=== PATIENT | female | born 1935 | race Caucasian/White ===

== ENCOUNTER 2016-07-08 01:39 | Observation (INO) | payer MEDICARE ==
[~2016-07-08] VITALS: Ht 149.9 cm; Wt 86.5 kg
[~2016-07-08 01:39] MED LIST: ACETAMINOPHEN325 MG PO; BAYER CHEWABLE81 MG PO; BETAPACE 80 MG80 MG PO; FRESH KOTE; FUROSEMIDE20 MG PO; GENTEAL; GLUCOPHAGE500 MG PO; LIPITOR10 MG PO; MAGNESIUM OXID250 MG PO; OS-CAL 500+D TA1 TAB PO; PLAVIX75 MG PO; RESTASIS EYE DR30 EA EACH EYE; VITAMIN B COMPL1 TAB PO; VITAMIN D31000 UNIT PO
[2016-07-08 02:28] LABS: BASOPHILS 0.2 % (0.0-2.0); EOSINOPHILS 0.7 % (0-7); HEMATOCRIT 45.3 % (36.0-48.0); HEMOGLOBIN 14.6 g/dL (12-16); IMMATURE GRANULOCYTES 0.2 % (0-5); LYMPHOCYTES 12.7 % (15-50); MCH 28.9 pg (26.0-34.0); MCHC 32.2 g/dL (31.0-37.0); MCV 89.5 fL (80.0-100.0); MEAN PLATELET VOLUME 10.1 fL (7.4-10.4); MONOCYTES 5.7 % (2-11); NEUTROPHILS 80.5 % (40-80); PLATELET COUNT 262 10x3/uL (130-400); RBC 5.06 10x6/uL (4.00-5.40); RDW 17.2 % (11.5-14.5); WBC 10.5 10x3/uL (4.8-10.8)
[2016-07-08 02:39] LABS: ALBUMIN 3.3 g/dL (3.4-5.0); ANION GAP 19.2 mmol/L (8-16); BILIRUBIN - TOTAL 1.09 mg/dL (0.2-1.3); CARBON DIOXIDE 22.6 mmol/L (21.0-32.0); CREATININE - SERUM 1.2 mg/dL (0.6-1.3); POTASSIUM - SERUM 3.8 mmol/L (3.5-5.1); PROTEIN - SERUM 6.8 g/dL (6.4-8.2)
[2016-07-08 02:53] LABS: MAGNESIUM - SERUM 1.3 mg/dL (1.8-2.4)
[2016-07-08 02:54] LABS: TROPONIN-I 0.062 ng/mL (0.000-0.060)
[2016-07-08] MEDS ORDERED: COREG 3.1253.125 MG PO (04:47)
[2016-07-08 04:48] VITALS: BP 156/95; BMI 38.6
[2016-07-08 05:00] VITALS: BP 140/70
[2016-07-08 08:35] VITALS: BP 148/73
[2016-07-08 13:21] VITALS: Ht 149.9 cm; Wt 86.5 kg
[2016-07-08 13:31] VITALS: BP 149/62
[2016-07-08 16:17] VITALS: BP 123/65
--- NOTE | 2016-07-08 19:00 | NUR ---
BEDSIDE REPORT RECEIVED AND CARE OF PT ASSUMED. PT SITTING UP IN CHAIR WATCHING TV. IV IN LEFT HAND SALINE LOCKED. LUNGS CLEAR BUT DIMINISHED IN THE BASES. WILL MONITOR CLOSELY FOR NEEDS.
[2016-07-08 20:00] VITALS: BP 134/56
--- NOTE | 2016-07-08 21:49 | NUR ---
HS MEDICATIONS GIVEN. WILL CONTINUE TO MONITOR FOR NEEDS. PT REMAINS SITTING UP IN RECLINER WITH FEET ELEVATED.
--- NOTE | 2016-07-08 22:00 | NUR ---
HS SNACK GIVEN- TURKEY SANDWICH AND CRANBERRY JUICE. WILL CONTINUE TO MONITOR FOR NEEDS.
[2016-07-09] VITALS: BP 116/48
[2016-07-09 04:00] VITALS: BP 136/68
[2016-07-09 08:13] VITALS: BP 127/52
[2016-07-09 12:26] VITALS: BP 130/74
--- NOTE | 2016-07-09 14:30 | NUR ---
UP IN CHAIR,REMAINS WITHOUT DISTRESS.CALL LIGHT IN REACH
--- NOTE | 2016-07-09 15:40 | NUR ---
Patient Name: JON ANDERSON Admission Status: ER Accout number: [id number] Admission Date: 07-08-2016 : 1935 Admission Diagnosis: Attending: IRVIN Current LOS: 1 Anticipated DC Date: 07-09-2016 Planned Disposition: Home Primary Insurance: [employer] CHOICE PPO MCR ADVANT Discharge Planning Comments: CM MET WITH PATIENT WITH D/C NEEDS AND PLANS. PATIENT STATED SHE LIVES AT [facility] AND HER FRIEND (NEO) WILL DRIVE HER THERE AT DISCHARGE. PATIENT STATED THERE IS AN ELEVATOR IN THE FACILITY. PATIENTS STATED SHE IS INDEPENDENT WITH HER CARE AND HAS A WALKER, WHEELCHAIR, AND GLUCOMETER (DOES NOT USE-A1C 6.2). PATIENTS PCP IS DR. LÓPEZ AND SHE USES [facility]. PATIENT REFUSED HOME HEALTH AND ANY OTHER NEEDS FOR DISCHARGE. PATIENT IS DISCHARGING TODAY. PCP DR. LÓPEZ [facility]- [phone] MIMI (SON) [phone] Front End Loader Driver: Tonja Delaney Is the patient Alert and Oriented? Yes 0 * How many steps to enter\exit or inside your home? ELEVATOR 0 * PCP DR. LÓPEZ 0 * Pharmacy [facility] 0 * Preadmission Environment Home with Family 0 * ADLs Independent 0 * Equipment Glucometer Walker Wheelchair 0 * List name and contact numbers for known caregivers / representatives who currently or will assist patient after discharge: MIMI PeñaSON) [phone] 0 * Community resources currently utilized None 0 * Additional services required to return to the preadmission environment? Yes 0 * Can the patient safely return to the preadmission environment? Yes 0 * Has this patient been hospitalized within the prior 30 days at any hospital? No 0 Grand Total: 0
[2016-07-09 16:02] VITALS: BP 122/67
--- NOTE | 2016-07-09 17:23 | NUR ---
DISCHARGE INSTRUCTIONS,STATES UNDERSTANDING.IV DCD CATH INTACT.CALL FOR RIDE HOME.
--- NOTE | 2016-07-09 17:35 | NUR ---
LEFT FLOOR VIA WHEELCHAIR FOR TRANSPORT HOME
--- NOTE | 2016-07-13 10:32 | DS ---
PATIENT:JON CHAMORRO :[birth year] MEDICAL RECORD: [id number] DISCHARGE SUMMARY ADMISSION DATE: 07/08/16 DISCHARGE DATE: 07/09/16 DISCHARGE DIAGNOSES: 1. Pulmonary edema. 2. Aortic stenosis. 3. Coronary artery disease. 4. Cardiomyopathy. 5. Congestive heart failure, chronic systolic dysfunction. 6. Hypertension. 7. Diabetes. HOSPITAL COURSE: Mrs. Chamorro presents with heart failure symptomatology, found to have pulmonary edema. She underwent diuresis with IV Lasix, breathing returned to baseline. She was discharged home with no change in her oral medications as she is already on Lasix at home. Will follow up with [facility] in 2-3 weeks. TRANSINT:[id number] Voice Confirmation ID: [id number] DOCUMENT ID: [id number] TERI HENRIQUEZ MD at 1032 CC: [id number] DICTATION DATE: 07/09/16 1320 STONE CUTTER: 07/10/16 0326 DIS IN 07/09/16 [facility] [address] [id number]
--- NOTE | 2016-07-13 10:32 | EC ---
PATIENT:JON ANDERSON DATE OF SERVICE: 07/08/16 SEX: F MEDICAL RECORD: [id number] DATE OF : [birth year] LOCATION:D.[facility] [place] AGE OF PATIENT: 81 ADMISSION DATE: 07/08/16 REFERRING PHYSICIAN: INTERPRETING PHYSICIAN: TERI ARCHIBALD MD ECHOCARDIOGRAM REPORT ECHO CHARGES 4 ECHO COMPLETE CLINICAL DIAGNOSIS: CHF ECHOCARDIOGRAPHIC MEASUREMENTS (adult normal given) AC root (d.<3.7cm) 2.5 LV Septum d (<1.2 cm> 1.4 Valve Excursion 0.6 LV Septum (systole) 1.5 Left Atria (s.<4.0cm> 3.5 LVPW d(<1.2cm) 1.5 RV (d.<2.3cm) 2.6 LVPW (sytole) 2.1 LV diastole(<5.6CM) 4.8 MV E-F(>70mm/sec) LV systole 3.9 LVOT Diameter 1.5 MV exc.(>10mm) Est.ejection fraction (50-75%) Pericardial Effusion N DOPPLER: LVIT A 88.0 E 101 LA RVSP 53.0 LVOT 53.0 AOP1/2T Asc. Ao 397 RVOT 90.0 RA PA 82.0 AV Gradient Peak 63.2 AV Mean 41.0 AV Area 0.3 MV Gradient Peak 4.5 MV Mean 1.5 MV Area COMMENTS: Barrel Bridge Assembler: Zaire LIOE Apartment Maintenance Manager:1 Dr. Archibald TAPE# PACS DATE OF SERVICE: 07/09/2016 Echocardiogram FINDINGS: 1. Left ventricular chamber size is dilated. Left ventricular systolic function is markedly reduced. Overall ejection fraction is 20%. 2. Left atrium is within normal limits at 3.5 cm. Right atrium and right ventricular chamber sizes are moderately dilated. 3. Valvular structures: Aortic valve demonstrates severe calcific aortic ECHOCARDIOGRAM REPORT [id number] JON ANDERSON stenosis, valve area calculates to less than 0.5 cm-squared and there is gradient of 63 mm across the valve. The remaining valvular structures have normal structure and motion. 4. Doppler interrogation elsewise reveals moderate mitral regurgitation, moderate tricuspid regurgitation, no other valvular insufficiency or stenosis and pulmonary systolic pressure is elevated estimated at 53 mmHg. 5. No evidence of pericardial effusion or left ventricular thrombus. TRANSINT:[id number] Voice Confirmation ID: [id number] DOCUMENT ID: [id number] TEIR ARCHIBALD MD at 1032 CC: [id number] DICTATION DATE: 07/09/16 1400 ALTERATION TAILOR APPRENTICE: 07/09/16 1520 DIS IN 07/09/16 [address] [place] [address]
== END 2016-07-09 17:35 | disposition home or self-care (01) ==
LOC: D.ER 01:39 → OBSVTIME 03:21 → D.MS 03:21
PROVIDERS: Emergency Medicine; ADMIT Internal Medicine Interventional Cardiology
DX: J81.1 Chronic pulmonary edema (principal); I25.10 Atherosclerotic heart disease of native coronary artery without angina pectoris; I35.0 Nonrheumatic aortic (valve) stenosis; I11.0 Hypertensive heart disease with heart failure; I50.23 Acute on chronic systolic (congestive) heart failure; E11.9 Type 2 diabetes mellitus without complications

== ENCOUNTER 2016-08-26 20:54 | Emergency (ER) | payer MEDICARE ==
[2016-07-08 13:21] VITALS: BMI 38.5
[~2016-08-26 20:54] MED LIST changes: +COREG 3.1253.125 MG PO
[2016-08-26 22:00] LABS: BASOPHILS 0.1 % (0.0-2.0); EOSINOPHILS 0.8 % (0-7); HEMATOCRIT 48.4 % (36.0-48.0); HEMOGLOBIN 15.5 g/dL (12-16); IMMATURE GRANULOCYTES 0.1 % (0-5); LYMPHOCYTES 21.9 % (15-50); MCH 29.2 pg (26.0-34.0); MCV 91.3 fL (80.0-100.0); MONOCYTES 9.4 % (2-11); NEUTROPHILS 67.7 % (40-80); PLATELET COUNT 255 10x3/uL (130-400); RDW 17.2 % (11.5-14.5); WBC 8.3 10x3/uL (4.8-10.8)
[2016-08-26 22:08] LABS: APTT 28.1 SECONDS (22.8-39.4); INR 1.15 (0.85-1.17); PROTIME 14.6 SECONDS (11.6-15.0)
[2016-08-26 22:14] LABS: ALBUMIN 3.1 g/dL (3.4-5.0); BILIRUBIN - TOTAL 0.91 mg/dL (0.2-1.3); CARBON DIOXIDE 24.3 mmol/L (21.0-32.0); CREATININE - SERUM 1.2 mg/dL (0.6-1.3); POTASSIUM - SERUM 4.3 mmol/L (3.5-5.1); PROTEIN - SERUM 6.6 g/dL (6.4-8.2)
== END 2016-08-26 23:00 | disposition home or self-care (01) ==
LOC: D.ER 20:54
PROVIDERS: Family Medicine
DX: R04.0 Epistaxis (principal); I48.2 Chronic atrial fibrillation; Z79.01 Long term (current) use of anticoagulants; I11.0 Hypertensive heart disease with heart failure; I50.9 Heart failure, unspecified; E11.9 Type 2 diabetes mellitus without complications

== ENCOUNTER 2016-08-27 13:55 | Emergency (ER) | payer MEDICARE ==
[2016-07-08 13:21] VITALS: BMI 38.5
== END 2016-08-27 16:45 | disposition home or self-care (01) ==
LOC: D.ER 13:55
DX: R04.0 Epistaxis (principal); I50.9 Heart failure, unspecified; I48.2 Chronic atrial fibrillation; E11.9 Type 2 diabetes mellitus without complications; I10 Essential (primary) hypertension; E83.42 Hypomagnesemia

== ENCOUNTER 2016-10-14 10:57 | Inpatient (IN) | payer MEDICARE ==
[~2016-10-14] VITALS: Ht 149.9 cm; Wt 81.4 kg
--- NOTE | ~2016-10-14 | CN ---
PATIENT NAME:JON ANDERSON MEDICAL RECORD: [id number] : 39 LOCATION:D.M2 D.2114 ADMIT DATE: 10/14/16 ACCOUNT: [id number] CONSULTING PHYSICIAN: ISMAEL ROSAS MD REFERRING PHYSICIAN: GESRON ARCHIBALD MD DATE OF CONSULTATION: 10/14/2016 CONSULT REQUESTING PHYSICIAN: Dr. Gerson Archibald. REASON FOR CONSULTATION: Pulmonary edema, possible pleural effusion. HISTORY OF PRESENT ILLNESS: Ms. Anderson is a 81-year-old female who has a history of chronic systolic dysfunction with EF of 10% to 15%, also she has aortic stenosis. The patient was seen in Dr. Archibald's office today and felt that she has pulmonary edema as well as pleural effusion. The patient denies any fever or chill, no night sweats. REVIEW OF SYSTEMS: As in history of present illness. PAST MEDICAL HISTORY: 1. Coronary artery disease. 2. Atrial fibrillation. 3. Congestive heart failure. 4. Chronic systolic dysfunction with EF less than 20%. 5. Aortic valve stenosis. 6. History of pulmonary edema in the past. 7. Hyperlipidemia. PAST SURGICAL HISTORY: She has a cardiac catheterization with stent placement. ALLERGIES: SHE IS ALLERGIC TO OXYCODONE AND PERCODAN. MEDICATIONS: On Stabilitech is reviewed. PERSONAL AND SOCIAL HISTORY: The patient is a nonsmoker, nondrinker. FAMILY HISTORY: Noncontributory. PHYSICAL EXAMINATION: GENERAL: Now, the patient is lying comfortably. She is not in acute distress. She is wearing nasal cannula oxygen. VITAL SIGNS: The blood pressure is 147/83, pulse is 72, respirations 16, temperature 97.5, pulse ox is 97% on room air. HEENT: Conjunctivae are pink. Sclerae nonicteric. NECK: Supple. There is elevated JVD. CHEST: There are bilateral crackles. No wheezing. HEART: Rate and rhythm is regular with a grade II/ systolic murmur. ABDOMEN: Soft. Bowel sounds present. No hepatosplenomegaly. RECTAL: Deferred. EXTREMITIES: No cyanosis, no clubbing. There is 3+ pedal edema. SKIN: Warm, normal turgor. CENTRAL NERVOUS SYSTEM: The patient is awake and alert. There are no obvious cranial nerve abnormalities. CHEST RADIOGRAPH: There are bilateral interstitial infiltrate. There is CONSULT REPORT [id number] JON ANDERSON perihilar infiltrate. There is possible left-sided pleural effusion. IMPRESSION: 1. Pulmonary edema. 2. Left pleural effusion secondary to congestive heart failure. 3. Congestive heart failure consistent with chronic systolic dysfunction with EF less than 20%. 4. Possible pneumonia consistent with community-acquired pneumonia. 5. Aortic stenosis. 6. Pulmonary hypertension secondary to aortic stenosis and left heart failure. 7. Coronary artery disease. 8. Atrial fibrillation. RECOMMENDATION: 1. Start her on Lasix, potassium and check the CT scan of the chest. 2. Follow up labs and chest radiograph in the morning. Check CBC and chemistry and proBNP. Dr. Archibald, thank you for involving me in the care of Ms. Anderson. TRANSINT:[id number] Voice Confirmation ID: [id number] DOCUMENT ID: [id number] ISMAEL ROSAS MD CC: GERSON ARCHIBALD MD [id number] DICTATION DATE: 10/14/16 1417 WAITER/WAITRESS: 10/14/16 9009 ADM IN [facility] [address] [place] [address]
--- NOTE | 2016-10-14 11:32 | NUR ---
RECIVED TO ROOM [address] FELIPE OFFICE. RN FOR ADMIT ASSESSMENT
--- NOTE | 2016-10-14 11:54 | NUR ---
NEW ADMIT FROM DR. FELIPE OFFICE. UP IN CHAIR WITH CALL LIGHT IN REACH. WILL CONT. PLAN OF CARE.
[2016-10-14] MEDS ORDERED: GENTEAL LUBRICA15 ML EACH EYE (12:06)
[2016-10-14 12:26] VITALS: BP 147/83
[2016-10-14 12:38] VITALS: BP 147/83; BMI 37.6
--- NOTE | 2016-10-14 13:29 | HP ---
PATIENT: JON CHAMORRO MEDICAL RECORD: [id number] ACCOUNT: [id number] LOCATION:D. D.2114 : [birth year] ADMISSION DATE: 10/14/16 HISTORY AND PHYSICAL EXAMINATION DATE OF ADMISSION: 10/14/2016 DIAGNOSES: 1. Shortness of breath, dyspnea on exertion. 2. Pleural effusion. 3. Aortic stenosis. 4. Cardiomyopathy, chronic systolic dysfunction. 5. Congestive heart failure, chronic systolic dysfunction. 6. Coronary artery disease. 7. Atrial fibrillation. 8. Hyperlipidemia. HISTORY OF PRESENT ILLNESS: Mrs. Chamorro presents with increasing shortness of breath. Echocardiogram reveals critical aortic stenosis, valve area of 0.3 cm-squared, and ejection fraction 10%-15%. She had a very large pleural effusion. She has had a history of pleural effusions from the congestive heart failure in the past requiring thoracentesis and has felt better after this. She has been going downhill for over 2 months now from a respiratory standpoint. PHYSICAL EXAMINATION: GENERAL APPEARANCE: Well-nourished, well-developed, appears stated age. Level of distress, comfortable. PSYCHIATRIC: Mental status, alert, normal affect. Orientation, oriented to time, place and person. EYES: Lids and conjunctiva, noninjected. No discharge, no pallor. ENT: Lips, teeth, gums, normal dentition. Oropharynx, no cyanosis, no pallor. NECK: Carotid arteries, bilateral normal upstroke, no bruits, no thrills. JUGULAR VEINS: No jugular venous pressure or distention. CERVICAL LYMPH NODES: Nontender, nonenlarged. THYROID: Not enlarged. Nontender. No nodules. LUNGS: Respiratory effort, unlabored. CHEST: Normal curvature. No thoracic deformity. No chest wall tenderness. Percussion, resonant. Auscultation, clear. No wheezes, no rales, no rhonchi. CARDIOVASCULAR: Precordial exam, nondisplaced. No heaves or pericardial thrills. Rate and rhythm, regular. Heart sounds, normal S1, normal S2. No S3, no gallop, no rub. Systolic murmur, not heard. Diastolic murmur, not heard. EXTREMITIES: No cyanosis, no edema. Peripheral pulses, full and equal in all extremities, except as noted. No bruits appreciated. ABDOMEN: Soft, nondistended. Normal aorta. No bruit. Nontender. No masses. Liver, nontender, no hepatomegaly. Spleen, nontender, no splenomegaly. MUSCULOSKELETAL: No joint tenderness. No joint swelling. No erythema. NEUROLOGICAL: Normal gait, normal strength, normal tone. SKIN: Warm and dry. REVIEW OF SYSTEMS: The patient reports easy bruising but reports no swollen glands. The patient reports no fever, no night sweats, no significant weight gain, no significant weight loss. No significant exercise tolerance. The patient reports no dry eyes, no irritation, no vision change. Patient reports no difficulty hearing and no ear pain. Patient reports no frequent nose bleeds or nose and sinus problems. Patient reports on arm pain on exertion. No HISTORY AND PHYSICAL [id number] JON CHAMORRO shortness of breath while lying down. No history of heart murmur. Patient reports no cough, no wheezing or coughing up blood. Patient reports no abdominal pain, no vomiting. Normal appetite. No diarrhea and not vomiting blood. No nausea and no constipation. Patient reports no incontinence. No difficulty urinating. No hematuria. No increased frequency. Patient reports no muscle aches. No weakness, no arthralgias, no back pain. No swelling of the extremities. Patient reports no abnormal mole, no jaundice, no rashes. Reports no loss of consciousness. No weakness and no numbness. No seizures, dizziness, or headaches. The patient reports no depression, no sleep disturbance, feeling safe in a relationship and no alcohol abuse. Patient reports on fatigue. Reports no runny nose or sinus pressure. No itching, no hives, and no frequent sneezing. OVERALL IMPRESSION: Congestive heart failure with large pleural effusion and shortness of breath. We will get a PA and lateral chest x-ray and have pulmonary see her for possible thoracentesis. TRANSINT:[id number] Voice Confirmation ID: [id number] DOCUMENT ID: [id number] TERI HENRIQUEZ MD at 1329 CC: [id number] DICTATION DATE: 10/14/16 1037 OPERATION AGENT: 10/14/16 1307 ADM IN [id number] [place] [address]
[2016-10-14 14:52] LABS: BASOPHILS 0.2 % (0-2); EOSINOPHILS 0.5 % (0-7); HEMATOCRIT 48.6 % (36.0-48.0); HEMOGLOBIN 15.4 g/dL (12-16); IMMATURE GRANULOCYTES 0.1 % (0-5); LYMPHOCYTES 14.9 % (15-50); MCH 29.8 pg (26.0-34.0); MCHC 31.7 g/dL (31.0-37.0); MEAN PLATELET VOLUME 9.8 fL (7.4-10.4); MONOCYTES 8.8 % (2-11); NEUTROPHILS 75.5 % (40-80); PLATELET COUNT 264 10x3/uL (130-400); RBC 5.17 10x6/uL (4.00-5.40); RDW 16.9 % (11.5-14.5); WBC 8.5 10x3/uL (4.8-10.8)
[2016-10-14 15:12] LABS: ALBUMIN 2.8 g/dL (3.4-5.0); ANION GAP 14.6 mmol/L (8-16); BILIRUBIN - TOTAL 0.8 mg/dL (0.2-1.3); CALCIUM 9.4 mg/dL (8.5-10.1); CARBON DIOXIDE 25.4 mmol/L (21.0-32.0); CREATININE - SERUM 0.8 mg/dL (0.6-1.3); PROTEIN - SERUM 5.9 g/dL (6.4-8.2)
--- NOTE | 2016-10-14 15:34 | NUR ---
IV access-reaccessed after left ac IV "came out. 20 gauge inserted in right forearm. Yulisa Hodges RN
[2016-10-14 16:30] VITALS: BP 153/70
--- NOTE | 2016-10-14 17:55 | NUR ---
WITHOUT CHANGES OR DISTRESS NOTED AT THIS TIME. FAMILY AT SIDE.
[2016-10-14 19:00] VITALS: BP 130/70
--- NOTE | 2016-10-14 19:00 | NUR ---
RECEIVED REPORT AND ASSUMED PT CARE FROM DAY SHIFT NURSE @ THIS TIME.
[2016-10-15] VITALS: BP 144/81
--- NOTE | 2016-10-15 03:48 | NUR ---
PT RESTING WELL WITHOUT C/O OR DISTRESS NOTED. NO NEEDS VOICED. CALL LIGHT WITHIN REACH. WILL MONITOR.
[2016-10-15 04:00] VITALS: BP 151/91
[2016-10-15 04:57] LABS: BASOPHILS 0.3 % (0-2); EOSINOPHILS 0.7 % (0-7); HEMATOCRIT 49.1 % (36.0-48.0); HEMOGLOBIN 15.8 g/dL (12-16); IMMATURE GRANULOCYTES 0.1 % (0-5); LYMPHOCYTES 22.8 % (15-50); MCH 29.6 pg (26.0-34.0); MCHC 32.2 g/dL (31.0-37.0); MCV 92.1 fL (80.0-100.0); MEAN PLATELET VOLUME 9.9 fL (7.4-10.4); NEUTROPHILS 65.1 % (40-80); PLATELET COUNT 290 10x3/uL (130-400); RBC 5.33 10x6/uL (4.00-5.40); RDW 16.8 % (11.5-14.5); WBC 7.5 10x3/uL (4.8-10.8)
[2016-10-15 05:08] LABS: CALCIUM 9.3 mg/dL (8.5-10.1); CARBON DIOXIDE 28.7 mmol/L (21.0-32.0); MAGNESIUM - SERUM 1.7 mg/dL (1.8-2.4); POTASSIUM - SERUM 4.7 mmol/L (3.5-5.1)
--- NOTE | 2016-10-15 06:25 | NUR ---
PT'S MAGNESIUM RESULTS @ 1.7, SHE IS ON ELECTROLYTE PROTOCOL. MAG OX 400 MG PO GIVEN. PT TO RECEIVE ONE MORE DOSE IN 4 HOURS PER PROTOCOL. WILL REPORT TO DAY SHIFT NURSE.
[2016-10-15 07:56] VITALS: BP 140/76
[2016-10-15 12:15] LABS: INR 1.16 (0.85-1.17); PROTIME 14.7 SECONDS (11.6-15.0)
--- NOTE | 2016-10-15 12:19 | NUR ---
CONSENTS SIGNED FPR THORACENTESIS.
[2016-10-15 12:22] LABS: APTT 31.9 SECONDS (22.8-39.4)
[2016-10-15 12:44] VITALS: BP 159/94
[2016-10-15 13:12] VITALS: Ht 149.9 cm; Wt 81.4 kg
--- NOTE | 2016-10-15 14:04 | NUR ---
LEAVING FOR CT BY BED.
--- NOTE | 2016-10-15 15:24 | NUR ---
BACK FROM CT. VS WNL. LEFT SIDE DRSG CLEAN AND DRY. WILL MONITOR.
[2016-10-15 15:45] LABS: PROTEIN - BODY FLUID 2.4 G/DL
[2016-10-15 16:43] VITALS: BP 105/47
[2016-10-15 19:00] VITALS: BP 124/74
--- NOTE | 2016-10-15 21:44 | NUR ---
PT STATES SHE IS EXHAUSTED AND WOULD LIKE TO SKIP LASIX DOSE IV TONIGHT SO SHE MAY GET SOME REST. COMPLIED WITH PT WISHES AT THIS TIME.
[2016-10-16 00:08] VITALS: BP 126/61
--- NOTE | 2016-10-16 02:21 | NUR ---
PT RESTING WELL WITHOUT C/O OR DISTRESS NOTED. NO NEEDS VOICED. CALL LIGHTS WITHIN REACH. WILL CONT TO MONITOR.
[2016-10-16 04:00] VITALS: BP 112/70
[2016-10-16 05:51] LABS: BASOPHILS 0.4 % (0-2); EOSINOPHILS 0.5 % (0-7); HEMATOCRIT 50.2 % (36.0-48.0); HEMOGLOBIN 16.2 g/dL (12-16); IMMATURE GRANULOCYTES 0.1 % (0-5); LYMPHOCYTES 19.9 % (15-50); MCH 29.5 pg (26.0-34.0); MCHC 32.3 g/dL (31.0-37.0); MCV 91.3 fL (80.0-100.0); MEAN PLATELET VOLUME 11.2 fL (7.4-10.4); NEUTROPHILS 71.1 % (40-80); PLATELET COUNT 280 10x3/uL (130-400); WBC 7.5 10x3/uL (4.8-10.8)
[2016-10-16 06:29] LABS: ANION GAP 17.5 mmol/L (8-16); CALCIUM 8.9 mg/dL (8.5-10.1); CARBON DIOXIDE 22.5 mmol/L (21.0-32.0); CREATININE - SERUM 0.8 mg/dL (0.6-1.3); MAGNESIUM - SERUM 1.6 mg/dL (1.8-2.4)
--- NOTE | 2016-10-16 07:26 | NUR ---
ASSESSMENT COMPLETED. TELEMERTY SHOWS SB AT 47.RIGHT WRIST SL. C/O PAIN TO LEFT SIDE OF BACK WHERE THORSENTIS DONE/ DERSG DRY AND INTACT. TYLENLOL GIVEN FOR RELIEF. UP IN BEDSIDE CHAIR. CALL LIGHT IN REACH WITH CAREGIVER AT BEDSIDE
[2016-10-16 08:59] VITALS: BP 144/74
--- NOTE | 2016-10-16 11:21 | NUR ---
resting quietly nad noted
--- NOTE | 2016-10-16 11:48 | NUR ---
UP IN BEDSIE CHAIR. DENIES ANY NEEDS. TELEMERTY SHOWS SR 74. WILL MONITOR
[2016-10-16 12:40] VITALS: BP 124/76
[2016-10-16 16:24] VITALS: BP 128/78
--- NOTE | 2016-10-16 16:51 | NUR ---
iV INFILTRATED. DCD AND WARM TOWEL APPLIED TO AREA. WILL RESTART
--- NOTE | 2016-10-16 17:06 | NUR ---
PT HAD A RUN OF 9 V TACK. V/S STABLE. B/P128/78. DR DUVAL NOTIFIED. NO NEW ORDERS. WILL MONITOR
--- NOTE | 2016-10-16 18:01 | NUR ---
UP IN BEDSIDE CHAIR. DENIES ANY NEEDS. TELEMERTY SHOWS SB WITH BBB. NO NEEDS VOICED. CALL LIGHT IN REAC
--- NOTE | 2016-10-16 19:00 | NUR ---
RECEIVED REPORT AND ASSUMED PT CARE FROM DAY SHIFT NURSE @ THIS TIME.
[2016-10-16 19:08] LABS: ACID FAST SMEAR Negative (()); AFB SPECIMEN PROCESSING Not Indicated (())
[2016-10-16 20:00] VITALS: BP 139/86
--- NOTE | 2016-10-16 20:21 | NUR ---
PT ASSISTED UP TO BSC. MILD BLE WEAKNESS NOTED. DENIES ANY C/O PAIN. BACK TO CHAIR. REFUSES SCD'S. CALL LIGHT WITH IN REACH. WILL CONT TO MONITOR.
--- NOTE | 2016-10-16 23:38 | NUR ---
PT RESTING WELL WITHOUT C/O OR DISTRESS NOTED. CALL LIGHT WITHIN REACH.
[2016-10-17] VITALS: BP 149/85
[2016-10-17 04:00] VITALS: BP 144/83
[2016-10-17 06:40] LABS: BASOPHILS 0.1 % (0-2); EOSINOPHILS 1.2 % (0-7); HEMATOCRIT 49.2 % (36.0-48.0); HEMOGLOBIN 15.8 g/dL (12-16); IMMATURE GRANULOCYTES 0.1 % (0-5); LYMPHOCYTES 21.4 % (15-50); MCH 29.7 pg (26.0-34.0); MCHC 32.1 g/dL (31.0-37.0); MCV 92.5 fL (80.0-100.0); MEAN PLATELET VOLUME 10.5 fL (7.4-10.4); MONOCYTES 9.3 % (2-11); NEUTROPHILS 67.9 % (40-80); PLATELET COUNT 248 10x3/uL (130-400); RBC 5.32 10x6/uL (4.00-5.40); RDW 16.9 % (11.5-14.5); WBC 7.3 10x3/uL (4.8-10.8)
[2016-10-17 07:06] LABS: ANION GAP 14.5 mmol/L (8-16); CALCIUM 8.8 mg/dL (8.5-10.1); CARBON DIOXIDE 24.9 mmol/L (21.0-32.0); MAGNESIUM - SERUM 1.7 mg/dL (1.8-2.4); POTASSIUM - SERUM 4.4 mmol/L (3.5-5.1)
--- NOTE | 2016-10-17 07:32 | NUR ---
ASSESSMENT COMPLETED. UP IN BEDSIDE CHAIR SLEEPING. TELEMERTY SHOWS SB AT 50.SL TO LEFT WRIST. DENIES ANY NEEDS. CALL LIGHT IN REACH
[2016-10-17 08:46] VITALS: BP 128/68
--- NOTE | 2016-10-17 11:25 | NUR ---
RESTING QUIETLY NAD NOTED FAMILY AT BEDSIDE
--- NOTE | 2016-10-17 11:45 | NUR ---
TO XRAY PER WHEEL CHAIR. DENIES ANY NEEDS
[2016-10-17 12:12] VITALS: BP 118/67
--- NOTE | 2016-10-17 17:16 | NUR ---
UP IN CHAIR FOR DIET. VISITOR AT BEDSIDE. DENIES ANY NEEDS. CALL LIGHT IN REACH
--- NOTE | 2016-10-17 19:15 | NUR ---
INITIAL ROUNDS MADE. PT SITTING UP IN CHAIR AT BEDSIDE. FAMILY IN ROOM. CALL LIGHT IN REACH. PT DENIES NEEDS OR C/O AT THIS TIME. WILL CONT TO MONITOR.
[2016-10-17 20:00] VITALS: BP 122/48
--- NOTE | 2016-10-17 22:41 | NUR ---
SALES OPERATIONS LEAD REPORTS PT HAS CONVERTED TO AFIB, RATE 70
[2016-10-18] VITALS: BP 113/63
--- NOTE | 2016-10-18 02:01 | NUR ---
PT RESTING WELL WITH EYES CLOSED, WILL CONT TO MONITOR.
[2016-10-18 04:00] VITALS: BP 118/74
--- NOTE | 2016-10-18 05:14 | NUR ---
SITTING UP IN CHAIR, FREQUENT ASSISTS UP TO BSC TONIGHT. PT C/O NO SLEEP DUE TO LASIX BEING GIVEN SO LATE. EXPLAINED WHEN ORDERED EVERY 8 HOURS, IT'S HARD TO SCHEDULE FOR EARLIER.
[2016-10-18 05:54] LABS: BASOPHILS 0.1 % (0-2); EOSINOPHILS 1.8 % (0-7); HEMATOCRIT 48.3 % (36.0-48.0); HEMOGLOBIN 15.6 g/dL (12-16); IMMATURE GRANULOCYTES 0.3 % (0-5); MCH 29.7 pg (26.0-34.0); MCHC 32.3 g/dL (31.0-37.0); MCV 91.8 fL (80.0-100.0); MEAN PLATELET VOLUME 10.4 fL (7.4-10.4); MONOCYTES 9.4 % (2-11); NEUTROPHILS 66.4 % (40-80); PLATELET COUNT 292 10x3/uL (130-400); RBC 5.26 10x6/uL (4.00-5.40); RDW 16.6 % (11.5-14.5); WBC 6.7 10x3/uL (4.8-10.8)
[2016-10-18 06:27] LABS: ANION GAP 12.6 mmol/L (8-16); CALCIUM 8.4 mg/dL (8.5-10.1); CARBON DIOXIDE 28.9 mmol/L (21.0-32.0); MAGNESIUM - SERUM 1.5 mg/dL (1.8-2.4); POTASSIUM - SERUM 3.5 mmol/L (3.5-5.1)
[2016-10-18 08:00] VITALS: BP 118/73
[2016-10-18 12:00] VITALS: BP 169/61
--- NOTE | 2016-10-18 12:17 | NUR ---
Nutrition follow-up: Diet: low sodium PO intake ~50% of meals Labs reviewed +BM Wt: 179# PO intake is poor to fair at this time. Will continue to encourage inceased po intake. RDN following.
[2016-10-18 13:13] LABS: FUNGUS STAIN Final report (())
--- NOTE | 2016-10-18 13:16 | NUR ---
TELEMETRY CAF. HR 88. UP IN CHAIR WITH CALL LIGHT IN REACH. WILL CONT. PLAN OF CARE.
--- NOTE | 2016-10-18 15:40 | NUR ---
CODE BLUE CALLED. PUT INTO BED FROM CHAIR. CPR STARTED. SON NOTIFIED.
--- NOTE | 2016-10-18 15:43 | NUR ---
Patient Name: JON ANDERSON Admission Status: Elective Accout number: [id number] Admission Date: 10-16-2016 : 1935 Admission Diagnosis:PLEURAL EFFUSION, NOT ELSEWHERE CLASSIFIED Attending: IRVIN Current LOS: 2 Anticipated DC Date: Planned Disposition: Home Primary Insurance: [employer] CHOICE PPO MCR ADVANT Discharge Planning Comments: * Is the patient Alert and Oriented? Yes 0 * How many steps to enter\exit or inside your home? ELEVATOR 0 * PCP DR. LÓPEZ 0 * Pharmacy [facility] 0 * Preadmission Environment Home Alone 0 * ADLs Independent 0 * Equipment Cane Glucometer Walker Wheelchair 0 * Other Equipment NO MEDICAL EQUIPMENT PROVIDER PREFERENCE 0 * List name and contact numbers for known caregivers / representatives who currently or will assist patient after discharge: MIMI ANDERSON, SON, 0 * Community resources currently utilized None 0 * Please name any agencies selected above. NONE 0 * Additional services required to return to the preadmission environment? No 0 * Can the patient safely return to the preadmission environment? Yes 0 * Has this patient been hospitalized within the prior 30 days at any hospital? No 0 CM MET WITH PT AND FAMILY IN ROOM TO DISCUSS DISCHARGE PLANNING AND NEEDS. PT REPORTS LIVING AT HOME INDEPENDENTLY AND ALONE. PT HAS GLUCOMETER, WALKER AND WHEELCHAIR THAT SHE DOES NOT USE AND A CANE AND TUB BENCH THAT SHE DOES USE. PT HAS NO MEDICAL EQUIPMENT PROVIDER PREFERENCE. PT HAS NO OUTSIDE SERVICES ASSISTING IN THE HOME. CM DISCUSSED AVAILABILITY OF HOME HEALTH, REHAB SERVICES AND MEDICAL EQUIPMENT. PT DENIES DISCHARGE NEEDS, REPORTS HER SON WILL PICK HER UP FOR DISCHARGE HOME AND SHE WILL BE MOVING TO [address] [place] [address], [id number]. PT REPORTS HAVING HOME WHERE SHE WILL CONTINUE TO LIVE ALONE AND INDEPENDENTLY, ALL OF HER BELONGINGS ARE PACKED UP ON THE AUL, WAITING ON DISCHARGE SO SHE CAN GO. IMPORTANT MESSAGE FROM MEDICARE PROVIDED AND EXPLAINED. PT PLANS TO MOVE TO [place] UPON DISCHARGE, WILL BE MOVING WITH FAMILY ASSISTANCE AND LIVING ALONE. PT DENIES DISCHARGE NEEDS AT THIS TIME. CM TO FOLLOW AND ASSIST NEEDED. Business Intelligence Director: Khari Nobles
--- NOTE | 2016-10-18 15:45 | NUR ---
MIMI ANDERSON, NEXT OF KIN NOTIFIED OF CODE.
--- NOTE | 2016-10-18 15:55 | NUR ---
SON AT . CODE STOPED PER FAMILY REQEST.
--- NOTE | 2016-10-18 16:15 | NUR ---
VIVIENNE NOTIFIED. DONATION DECLINED DUE TO AGE.
--- NOTE | 2016-10-18 16:16 | NUR ---
BERONICA/ARELY NOTIFIED FOR TRANSPORT.
--- NOTE | 2016-10-18 16:54 | NUR ---
LEAVING HOSPITOL BY STRETCHER.
[2016-10-22 11:19] LABS: FUNGUS MYCOLOGY CULTURE Preliminary report (())
== END 2016-10-18 16:58 | disposition home or self-care (01) | DRG 291 ==
LOC: D.M2 10:57 → OBSVTIME 10:57 → D.M2 10:57
PROVIDERS: General Practice; Internal Medicine Pulmonary Disease; ADMIT Internal Medicine Interventional Cardiology
PROC: 0W993ZZ Drainage of Right Pleural Cavity, Percutaneous Approach (ICD-10-PCS; principal; 2016-10-15 14:15)
PROC: 5A12012 Performance of Cardiac Output, Single, Manual (ICD-10-PCS; 2016-10-18)
PROC: 0BH17EZ Insertion of Endotracheal Airway into Trachea, Via Natural or Artificial Opening (ICD-10-PCS; 2016-10-18)
DX: I11.0 Hypertensive heart disease with heart failure (principal); J18.9 Pneumonia, unspecified organism; J98.11 Atelectasis; I50.22 Chronic systolic (congestive) heart failure; I25.10 Atherosclerotic heart disease of native coronary artery without angina pectoris; I35.0 Nonrheumatic aortic (valve) stenosis; I48.2 Chronic atrial fibrillation; I27.2 Other secondary pulmonary hypertension